=== PATIENT | male | born 1985 | race Caucasian/White ===

== ENCOUNTER 2016-08-17 12:28 | Emergency (ER) | payer OTHER ==
--- NOTE | 2016-08-24 14:37 | ER ---
ADMIT: 08/17/2016 RM/LOC: ER [facility] MR#: [id number] [facility] [address] [place] [id number] [address] [place] [address] Emergency Room Report SEX: M AGE: 31 : 1985 DATE: 08/17/2016 ADDENDUM: CHIEF COMPLAINT: Laceration to head. HISTORY OF PRESENT ILLNESS: This is a 31-year-old male, who was helping in pushing some kind of an aircraft, and he ran into the door with his head. He has about a 5 cm laceration to the top of his head. Seven yumiko were placed. I am having him keeping them in for 7 to 10 days. Keep the area clean. Return to the ER if there is any mental status changes or vomiting. CLINICAL IMPRESSION: Laceration to head SHAHRAM Rivers / Celio Whitlock MD / adenl JOB #: [id number] CC: Celio Whitlock MD, Attending Physician Santiago Chi MD, Family Physician
== END 2016-08-17 13:00 | disposition home or self-care (01) ==
LOC: ER 12:28
PROC: 0HQ0XZZ Repair Scalp Skin, External Approach (ICD-10-PCS; principal; 2016-08-17)
DX: S01.01XA Laceration without foreign body of scalp, initial encounter (principal); W22.8XXA Striking against or struck by other objects, initial encounter

== ENCOUNTER 2016-08-25 12:52 | Emergency (ER) | payer OTHER ==
--- NOTE | 2016-08-30 10:00 | ER ---
ADMIT: 08/25/2016 RM/LOC: ER [facility] MR#: [id number] [address] [id number] [address] [place] [address] Emergency Room Report SEX: M AGE: 31 : 1985 DATE: 08/25/2016 ADDENDUM: A 31-year-old white male, evidently had yumiko placed to the scalp. A couple of these were removed. His wound on top of his scalp were healing well. He has no other complaints. He has no emergent medical condition. He should follow up as needed. CONDITION ON DISCHARGE: Good. Celio Wihtlock MD/ paz JOB #: [id number] CC: Celio Whitlock MD, Attending Physician
== END 2016-08-25 13:20 | disposition home or self-care (01) ==
LOC: ER 12:52
DX: S01.01XD Laceration without foreign body of scalp, subsequent encounter (principal)